=== PATIENT | male | born 1980 | race Caucasian/White ===

== ENCOUNTER 2020-07-05 11:21 | Emergency (ER) | payer OTHER, SELFPAY ==
--- NOTE | 2020-07-05 11:29 | ED.EYEPROB ---
HPI - Eye Problem General Chief complaint: Eye Problems Stated complaint: Right eye pain Time Seen by Provider: 07/05/20 12:12 Source: patient and RN notes reviewed Mode of arrival: ambulatory Limitations: no limitations History of Present Illness HPI Narrative: 40-year-old male presents concern for right eye pain, redness, watering. Reports yesterday while working a piece of wood flew up and hit his eye. Reports he had his contact in, he right away took his contact out and rinsed his eye out. Reports since then he is having light sensitivity, watery drainage. Denies vision changes. Denies sense of foreign body. Denies purulent drainage. chief complaint: eye pain Related Data Allergies Allergy/AdvReac Type Severity Reaction Status Date / Time No Known Allergies Allergy Unverified 12/17/14 16:57 Review of Systems Review of Systems: Narrative: CONSTITUTIONAL: Denies malaise, chills, sweats, or fever. EYES: Denies visual changes. Reports right eye pain, redness, or discharge. ENT: Reports rhinorrhea. Denies congestion, sinus pain, otalgia or sore throat. CARDIOVASCULAR: Denies chest pain, palpitations, or edema. RESPIRATORY: Denies cough or dyspnea. SKIN: Denies rash or itching. NEUROLOGIC: Denies headache. All systems reviewed & are unremarkable except as noted in HPI and below PMFSH Family History Family History (Updated 10/29/13 @ 07:13 by DOCTOR UNKNOWN) Father Hypertension Mother Hypertension Cerebrovascular accident Comments At time of signature, agree with nursing past medical, surgical, social and family history. There is no relevant family history pertinent to the presenting complaint Exam Narrative: Exam Narrative: GENERAL: Well-appearing, well-nourished, and in no acute distress. HEAD: Normocephalic, atraumatic. EYES: PERRLA, EOMI. No nystagmus. Right eye sclera injected, conjunctive is clear, watery drainage noted. Corneal abrasion noted upon Yang lamp exam, see note. No foreign body visible ENT: Nares clears. Mucous membranes moist. NECK: Supple. CHEST: No respiratory distress. Speaks in full sentences. HEART: Regular rate and rhythm SKIN: Warm, dry, no rash. NEURO: Alert and oriented x3. PSYCH: Normal mood and affect Course Course Emergency Course: Patient is aware of diagnosis, understands and agrees to treatment plan. Anticipatory guidance given. Patient agrees to follow-up as directed and is aware of reasons to seek care at the emergency department. Portions of this record may have been created with voice recognition software Vital Signs Vital signs: Vital Signs Temperature 93.8 F L 07/05/20 11:32 Pulse Rate 61 07/05/20 11:32 Respiratory Rate 16 07/05/20 11:32 Blood Pressure 126/68 07/05/20 11:32 Pulse Oximetry 99 07/05/20 11:32 Temperature 93.8 F L 07/05/20 11:32 Pulse Rate 61 07/05/20 11:32 Respiratory Rate 16 07/05/20 11:32 Blood Pressure 126/68 07/05/20 11:32 Pulse Oximetry 99 07/05/20 11:32 Reviewed. Procedures Other Procedure Procedure 1: Other Procedure: Tetracaine 1 gtt instilled in right eye, fluorescein stain applied. Corneal abrasion noted upon yang lamp exam above the pupil. Eye washed with NS 100 ml. No foreign bodies or Carlos sign noted. MDM - Eye Problem MDM Narrative Medical decision making narrative: Consideration of the following conditions may be warranted for the presenting problem, they are not final diagnoses: Bacterial conjunctivitis, allergic conjunctivitis, viral conjunctivitis, foreign body, blepharitis, chalazion, hordeolum, corneal abrasion, preseptal cellulitis, orbital cellulitis. No evidence of proptosis, ophthalmoplegia, vision loss, pain with eye movement. Exam findings show no acute concerns or changes; patient is non-toxic appearing and is in no distress. Patient is appropriate for outpatient treatment and follow-up. Critical Care Time Critical Care Time Critical Care Time: No Dis
[2020-07-05 11:32] VITALS: BP 126/68; PULSE 61; RESP 16; TEMP 34.3; O2SAT 99
== END 2020-07-05 12:30 | disposition home or self-care (01) ==
PROVIDERS: Emergency Provider Nurse Practitioner; PCP Family Medicine
DX: S05.01XA Injury of conjunctiva and corneal abrasion without foreign body, right eye, initial encounter (principal); W20.8XXA Other cause of strike by thrown, projected or falling object, initial encounter; Y99.0 Civilian activity done for income or pay; G47.30 Sleep apnea, unspecified
CPT/HCPCS: 99213; A9270; G0463

== ENCOUNTER 2022-03-21 09:47 | Outpatient (CLI) | payer OTHER, SELFPAY ==
--- NOTE | ~2022-03-21 | XR_ITS ---
AP view of the pelvis and AP and lateral views of the bilateral hips Clinical history: Pain Findings: No acute fracture or dislocation is seen. Osseous alignment is anatomic. Bilateral hip and SI joint spaces are preserved. Soft tissues are unremarkable. Impression: No significant abnormality is seen. Reviewed, dictated and finalized at [facility]. [employer] APPRENTICE Impression: No significant abnormality is seen.
--- NOTE | ~2022-03-21 | XR_ITS ---
Cervical Spine: AP, lateral, open-mouth views Clinical History: Pain Findings: There is straightening of the normal cervical lordosis. The vertebral bodies and posterior elements appear intact. The intervertebral disc spaces are well maintained. Pre-vertebral soft tiss ues are unremarkable. Impression: Straightening of the cervical lordosis, otherwise unremarkable exam. Reviewed, dictated and finalized at location . WORKER Impression: Straightening of the cervical lordosis, otherwise unremarkable exam.
--- NOTE | ~2022-03-21 | XR_ITS ---
Lumbosacral Spine: AP and lateral views Clinical History: Pain Findings: The normal lordotic curve is maintained. The vertebral bodies and posterior elements are i ntact. The intervertebral disc spaces are preserved. Mild facet joint degenerative change present fr om L4 through S1. The sacroiliac joints are normally outlined. Impression: Mild facet joint degenerative changes, as above. Reviewed, dictated and finalized at location . TRACK STEWARD Impression: Mild facet joint degenerative changes, as above.
== END 2022-03-21 09:48 | disposition home or self-care (01) ==
PROVIDERS: PCP Family Medicine; Visit Provider Physician Assistant
DX: M25.551 Pain in right hip (principal); M25.552 Pain in left hip; M54.2 Cervicalgia; M53.82 Other specified dorsopathies, cervical region
CPT/HCPCS: 72040; 72100; 73521

== ENCOUNTER 2024-01-20 08:14 | Outpatient (CLI) | payer OTHER, SELFPAY ==
--- NOTE | ~2024-01-20 | US_ITS ---
EXAMINATION: US venous doppler [facility] DATE: 01/20/2024 08:56 INDICATION: Bilateral lower limb pain and swelling TECHNIQUE: Grayscale ultrasound images without and with compression and Doppler ultrasound images of the bilateral lower extremity veins were obtained. COMPARISON: None. FINDINGS: The visualized portions of right common femoral vein, profunda (deep) femoral vein, femoral vein, pop liteal vein, posterior tibial veins, peroneal veins, soleal vein, gastrocnemius vein and greater saph enous vein outflow are patent. The visualized portions of left common femoral vein, profunda femoral vein, femoral vein, popliteal v ein, posterior tibial veins, peroneal veins, soleal vein, gastrocnemius vein and greater saphenous ve in outflow are patent. IMPRESSION: 1. No deep venous thrombosis in either lower limb. Reviewed, dictated and finalized at location B. EMIC DIRECTOR
== END 2024-01-20 08:15 | disposition home or self-care (01) ==
LOC: MICIMG 08:16
PROVIDERS: PCP Nurse Practitioner Family; Visit Provider Nurse Practitioner Family
DX: M79.661 Pain in right lower leg (principal); M79.662 Pain in left lower leg
CPT/HCPCS: 93970